=== PATIENT | male | born 1995 | race Two or more races ===

== ENCOUNTER → 2024-11-18 | Outpatient (CLI) | payer MEDICAID, SELFPAY ==
--- NOTE | 2024-11-18 13:00 | XR_ITS ---
Examination: MRI brain with intravenous contrast TECHNIQUE: Multiple axial sagittal coronal MR images post intravenous contrast 13 cc gadolinium INDICATIONS: Headaches blurred vision right eye 5 years Date and time: November 18, 2024 1314 hours FINDINGS: Ventricles are normal in size and configuration Right frontal lobe mass low signal intensity 21 x 18 mm without enhancement No mass effect, the ventricular system Fourth ventricle midline No tonsillar herniation IMPRESSION: Right frontal lobe apparent cystic mass 21 x 18 mm Recommend this patient return for MRI of brain without intravenous contrast follow-up
== END | disposition home or self-care (01) ==
LOC: SMRI 12:25
PROVIDERS: PCP Physician Assistant Medical; Referring Provider Physician Assistant Medical; Visit Provider Physician Assistant Medical
DX: G93.0 Cerebral cysts (principal)
CPT/HCPCS: 70552; A9579